=== PATIENT | male | born 1990 | race Caucasian/White ===

== ENCOUNTER 2019-01-19 02:21 | Emergency (ER) | payer BC ==
[~2019-01-19] VITALS: Ht 175.3 cm; Wt 79.4 kg
[2019-01-19] MEDS ORDERED: PANT40TA2 PO (02:33)
--- NOTE | 2019-01-19 02:51 | NUR ---
Dr. Seo at bedside for MSE.
--- NOTE | 2019-01-19 04:25 | NUR ---
Patient discharged to home in stable conditon. Written and verbal after care instructions given. Patient verbalizes understanding of instructions. Pt ambulated out of ER with steady gait, no acute signs of distress, VSS, all belongings taken.
[2019-01-19 04:27] VITALS: BP 126/73
== END 2019-01-19 04:27 | disposition home or self-care (01) ==
LOC: ER 02:28
DX: F41.9 Anxiety disorder, unspecified (principal); R07.89 Other chest pain; R06.00 Dyspnea, unspecified; F32.9 Major depressive disorder, single episode, unspecified; F17.200 Nicotine dependence, unspecified, uncomplicated; Z79.2 Long term (current) use of antibiotics; Z79.899 Other long term (current) drug therapy
CPT/HCPCS: 71046; 93005; A4663